=== PATIENT | female | born 1955 | race Caucasian/White ===

== ENCOUNTER 2023-12-11 11:24 | Day surgery (SDC) | payer MEDICARE, MEDICAID ==
[2023-12-11] MEDS ORDERED: Lidocaine 2% PF 5 ML VIAL ONE (12:53)
[2023-12-11] MEDS ORDERED: PROPOFOL 20 ML ONE (12:53)
== END 2023-12-11 14:17 | disposition home or self-care (01) ==
LOC: SDC 11:24
PROVIDERS: ATTEND Internal Medicine Gastroenterology
PROC: 0DJ08ZZ Inspection of Upper Intestinal Tract, Via Natural or Artificial Opening Endoscopic (ICD-10-PCS; principal; 2023-12-11)
DX: K21.00 Gastro-esophageal reflux disease with esophagitis, without bleeding (principal); K22.10 Ulcer of esophagus without bleeding; K44.9 Diaphragmatic hernia without obstruction or gangrene; I10 Essential (primary) hypertension; F79 Unspecified intellectual disabilities; E07.9 Disorder of thyroid, unspecified; Z90.710 Acquired absence of both cervix and uterus; Z90.49 Acquired absence of other specified parts of digestive tract; Z79.890 Hormone replacement therapy; Z79.899 Other long term (current) drug therapy; Z88.1 Allergy status to other antibiotic agents; Z88.5 Allergy status to narcotic agent; Z88.2 Allergy status to sulfonamides
CPT/HCPCS: J2001; J2704